=== PATIENT | female | born 1955 | race Caucasian/White ===

== ENCOUNTER 2017-07-11 11:19 | Emergency (ER) | payer OTHER ==
[~2017-07-11] VITALS: Ht 160 cm; Wt 61.0 kg
[2017-07-11 11:46] VITALS: BP 158/74
[2017-07-11] MEDS ORDERED: acetaminophen 325mg tablet PO ONE (12:25)
== END 2017-07-11 13:26 | disposition home or self-care (01) ==
LOC: ER 11:22
DX: S43.401A Unspecified sprain of right shoulder joint, initial encounter (principal); X58.XXXA Exposure to other specified factors, initial encounter; Y93.89 Activity, other specified; Y92.89 Other specified places as the place of occurrence of the external cause; Y99.8 Other external cause status
CPT/HCPCS: 29105; 73030; 99284; A4565